=== PATIENT | female | born 1995 | race Caucasian/White ===

== ENCOUNTER 2024-07-16 22:50 | Inpatient (IN) | payer OTHER ==
[~2024-07-16] VITALS: Ht 152.4 cm; Wt 87.1 kg
[2024-07-16 22:19] VITALS: BP 108/72
[2024-07-16] MEDS ORDERED: ADULT LOW DOSE81 M1 PO (22:54)
[2024-07-16] MEDS ORDERED: PRENATAL TABLE1 EAC1 PO (22:54)
[2024-07-16] MEDS ORDERED: RINGERS SOLUTION,LACTATED 1,000 ML IV SCH (23:00)
[2024-07-16 23:40] VITALS: BP 103/68
[2024-07-16 23:40] LABS: URINE APPEARANCE Clear; URINE BILIRRUBIN Negative (NEGATIVE); URINE BLOOD Negative; URINE COLOR Yellow; URINE GLUCOSE Negative (NEGATIVE); URINE KETONE 15 (NEGATIVE); URINE LEUKOCYTE Negative; URINE NITRATE Negative; URINE PROTEIN Negative (NEGATIVE); URINE UROBILINOGEN 0.2 E.U./dl
[2024-07-16 23:41] LABS: HEMATOCRIT 30.1 % (36.0-45.00); HEMOGLOBIN 10.6 g/dL (12.0-15.00); MEAN CELL VOLUME 85.9 fL (80.00-100.00); MEAN CORPUSCULAR HEMOGLOBIN 30.3 pg (27.00-32.0); MEAN CORPUSCULAR HGB CONC 35.3 g/dl (32.0-36.0); PLATELET COUNT 258 K/uL (150-450); RED CELL DISTRIBUTION WIDTH 13.4 % (11.5-14.5)
[2024-07-16 23:43] LABS: URINE BACTERIA 811.2 uL (0.0-1933); URINE EPITHELIAL CELLS 8.6 uL (0.0-38.8); URINE RBC 3.6 uL (0.0-20.8); URINE WBC 11.2 uL (0.0-23.2)
[2024-07-17] VITALS (7 sets, daily range): BP systolic 90–111; BP diastolic 52–73
[2024-07-18 03:16] VITALS: BP 101/68
[2024-07-18 07:20] VITALS: BP 98/62
== END 2024-07-18 09:20 | disposition home or self-care (01) | DRG 833 ==
LOC: OBS/DEL 22:50 → LDR 07-17 15:50
PROVIDERS: ADMIT Obstetrics & Gynecology Obstetrics; ATTEND Obstetrics & Gynecology Obstetrics
PROC: 4A1HXCZ Monitoring of Products of Conception, Cardiac Rate, External Approach (ICD-10-PCS; principal; 2024-07-17)
PROC: BY4FZZZ Ultrasonography of Third Trimester, Single Fetus (ICD-10-PCS; 2024-07-17)
DX: O46.8X3 Other antepartum hemorrhage, third trimester (principal); Z3A.37 37 weeks gestation of pregnancy

== ENCOUNTER 2024-08-05 23:55 | Inpatient (IN) | payer OTHER ==
[~2024-08-05] VITALS: Ht 152.4 cm; Wt 3.2 kg
[2024-08-05 23:11] VITALS: BP 109/65
[~2024-08-05 23:55] MED LIST: ADULT LOW DOSE81 M1 PO; CEFAZOLIN SODIUM 1,000 MG VIAL ONE; PRENATAL TABLE1 EAC1 PO
[2024-08-06] MEDS ORDERED: RINGERS SOLUTION,LACTATED 1,000 ML IV SCH (00:15)
[2024-08-06] MEDS ORDERED: CEFAZOLIN SODIUM 1,000 MG VIAL IV SCH (00:15)
[2024-08-06] MEDS ORDERED: MORPHINE SULFATE 4 MG/ML CARTRIDGE IV PRN (00:15)
[2024-08-06 00:40] LABS: HEMATOCRIT 31.2 % (36.0-45.00); HEMOGLOBIN 10.8 g/dL (12.0-15.00); MEAN CELL VOLUME 86.2 fL (80.00-100.00); MEAN CORPUSCULAR HEMOGLOBIN 29.9 pg (27.00-32.0); MEAN CORPUSCULAR HGB CONC 34.7 g/dl (32.0-36.0); PLATELET COUNT 283 K/uL (150-450); RED BLOOD COUNT 3.62 M/uL (4.00-6.00); RED CELL DISTRIBUTION WIDTH 13.8 % (11.5-14.5)
[2024-08-06 00:41] LABS: PH,URINE 6.5 (5.0-8.0); URINE APPEARANCE Clear; URINE BILIRRUBIN Negative (NEGATIVE); URINE BLOOD Negative; URINE COLOR Yellow; URINE GLUCOSE Negative (NEGATIVE); URINE KETONE Negative (NEGATIVE); URINE LEUKOCYTE Negative; URINE NITRATE Negative; URINE PROTEIN Negative (NEGATIVE); URINE UROBILINOGEN 0.2 E.U./dl
[2024-08-06 00:42] LABS: URINE EPITHELIAL CELLS 13.9 uL (0.0-38.8); URINE WBC 12.8 uL (0.0-23.2)
[2024-08-06 00:43] LABS: URINE CAST 0.29 uL (0.0-1.40); URINE RBC 0.2 uL (0.0-20.8)
[2024-08-06 01:04] LABS: INR 0.96; PROTHROMBIN TIME 10.5 SECONDS (9.0-11.5)
[2024-08-06 01:08] LABS: ALBUMIN 2.5 gm/dL (3.4-5.0); BILIRUBIN TOTAL 0.17 mg/dL (0.3-1.2); CREATININE SERUM 0.5 mg/dL (0.55-1.02); GFR 145.87; GLOBULINA 3.5 G/DL (2.4-3.5); POTASSIUM 4.05 mEq/L (3.5-5.1)
[2024-08-06 03:00] VITALS: BP 106/64
[2024-08-06 07:10] VITALS: BP 104/60
[2024-08-06] MEDS ORDERED: CEFAZOLIN SODIUM 1,000 MG VIAL ONE (09:29)
[2024-08-06 15:12] VITALS: BP 112/73
[2024-08-06] MEDS ORDERED: MISOPROSTOL 25 MCG/4 ML GEL.W.APPL ONE (18:27)
[2024-08-06] MEDS ORDERED: MISOPROSTOL 25 MCG/4 ML GEL.W.APPL VAG NR (18:35)
[2024-08-06 19:32] VITALS: BP 114/67
[2024-08-06 22:33] VITALS: BP 115/65
[2024-08-07 04:00] VITALS: BP 101/57
[2024-08-07 07:20] VITALS: BP 105/63
[2024-08-07] MEDS ORDERED: MORPHINE SULFATE 4 MG/ML CARTRIDGE IV ONE (09:30)
[2024-08-07 11:40] VITALS: BP 100/58; O2SAT 100
[2024-08-07 15:11] VITALS: BP 122/69
[2024-08-07] MEDS ORDERED: ERYTHROMYCIN BASE OPHT 1GM EACH TUBE OP ONE (17:03)
[2024-08-07] MEDS ORDERED: CHLORHEXIDINE GLUCONATE 120 ML BOTTLE TOP ONE (17:03)
[2024-08-07] MEDS ORDERED: OXYTOCIN 10 UNITS/ML VIAL ONE (17:03)
[2024-08-07] MEDS ORDERED: MORPHINE SULFATE 4 MG/ML CARTRIDGE IV PRN (19:00)
[2024-08-07] MEDS ORDERED: MORPHINE SULFATE 4 MG/ML VIAL IV ONE ×2 (19:40→20:10)
[2024-08-07 22:17] VITALS: BP 98/58
[2024-08-08] VITALS: BP 104/70
[2024-08-08 04:30] VITALS: BP 106/71
[2024-08-08] MEDS ORDERED: OxyCODONE HCL 5 MG TABLET (ROXICODONE) PO SCH (09:00)
[2024-08-08 09:05] VITALS: BP 114/76
[2024-08-08 17:19] VITALS: BP 99/68
[2024-08-08 19:56] VITALS: BP 96/65
[2024-08-09] VITALS: BP 105/71
[2024-08-09 08:34] VITALS: BP 114/78
== END 2024-08-09 16:41 | disposition home or self-care (01) | DRG 788 ==
LOC: LDR 23:55 → OB/GYN 23:55 → O/R 08-07 17:43 → OB/GYN 08-07 19:37
PROVIDERS: ADMIT Obstetrics & Gynecology Obstetrics; ATTEND Obstetrics & Gynecology Obstetrics
PROC: 4A1HXCZ Monitoring of Products of Conception, Cardiac Rate, External Approach (ICD-10-PCS; 2024-08-05)
PROC: 3E033VJ Introduction of Other Hormone into Peripheral Vein, Percutaneous Approach (ICD-10-PCS; 2024-08-06)
PROC: 3E0P7VZ Introduction of Hormone into Female Reproductive, Via Natural or Artificial Opening (ICD-10-PCS; 2024-08-06)
PROC: 10D00Z1 Extraction of Products of Conception, Low, Open Approach (ICD-10-PCS; principal; 2024-08-07 17:30)
DX: O61.0 Failed medical induction of labor (principal); Z3A.37 37 weeks gestation of pregnancy; Z37.0 Single live birth